=== PATIENT | male | born 1990 | race Caucasian/White ===

== ENCOUNTER 2020-03-05 14:43 | Emergency (ER) | payer BC, MEDICAID ==
[~2020-03-05] VITALS: Ht 175.3 cm; Wt 72.6 kg
[2020-03-05 14:47] VITALS: BP 123/71
--- NOTE | 2020-03-05 14:47 | NUR ---
ED Nurse Note: Pt ESDRAS RA 834 from his apartment for behavioral complaint. Pt states he feels unsafe where he is living in a "sober living home," has received threats from other residents pt verbalized "people are out to kill me." Per EMS report pt has been hearing voices and doesnt think where he live is safe.
--- NOTE | 2020-03-05 14:54 | Emergency Room Report ---
History of Present Illness General Chief Complaint: Behavioral Complaint Source: Patient (Abdi Hurtado MD) Present Illness HPI Patient is a 29-year-old male presents for increased paranoid thoughts. Patient states that people are out to get him at the house that he lives at. He states he stays at a sober living. The report smoking marijuana daily. Denies any other drug use. States has been off of his Seroquel . Denies any difficulty with sleeping. Reports not wanting to talk about the situation due to believing in a "code"Patient denies any current medical complaints. (Abdi Hurtado MD) Allergies: Coded Allergies: No Known Allergies (Unverified , 03/05/20) COVID-19 Screening Contact w/high risk pt: No Experienced COVID-19 symptoms?: No COVID-19 Testing performed ASPHALT MIXER: No (Abdi Hurtado MD) Patient History Past Medical History: see triage record Reviewed Nursing Documentation: PMH: Agreed; PSxH: Agreed (Abdi Hurtado MD) Nursing Documentation-PMH Past Medical History: No History, Except For History Of Psychiatric Problem: Yes (Abdi Hurtado MD) Review of Systems All Other Systems: negative except mentioned in HPI (Abdi Hurtado MD) Physical Exam Vital Signs Date Time Temp Pulse Resp B/P (MAP) Pulse Ox O2 Delivery O2 Flow Rate FiO2 03/05/20 14:40 98.8 101 18 160/78 (105) 98 Room Air Sp02 EP Interpretation: reviewed, normal General Appearance: normal inspection, well appearing, no apparent distress, alert, GCS 15, non-toxic Head: atraumatic ENT: normal ENT inspection, hearing grossly normal, normal voice Neck: normal inspection, full range of motion, supple, no bony tend Respiratory: normal inspection, lungs clear, normal breath sounds, no respiratory distress, no retraction, no wheezing Cardiovascular #1: regular rate, rhythm, no edema Gastrointestinal: normal inspection, normal bowel sounds, non tender, soft, no guarding, no hernia Genitourinary: no CVA tenderness Musculoskeletal: normal inspection, back normal, normal range of motion Neurologic: alert, motor strength/tone normal, air and water filler III-XII nml as tested, oriented x3, responsive, speech normal, normal inspection Psychiatric: normal inspection, judgement/insight normal, mood/affect normal (Abdi Hurtado MD) Medical Decision Making Diagnostic Impression: Primary Impression: Suicidal thoughts ER Course Patient presented for reported thoughts of someone else threatening him. Differential diagnosis include was not limited to paranoid schizophrenia, substance abuse, among others. Patient was seen by [place] [employer]. Patient was placed on a 5150 hold. Patient states that he been off of his psychiatric medication which with Seroquel. Denies any other previous medication use. Per [employer] patient stated that he wanted to kill himself by hanging. He did not report any this to me. Patient was medically cleared for psychiatric placement. He was given Seroquel in the emergency department. Labs Test 03/05/20 15:31 White Blood Count 6.6 K/UL (4.8-10.8) Red Blood Count 4.86 M/UL (4.70-6.10) Hemoglobin 16.4 G/DL (14.2-18.0) Hematocrit 46.4 % (42.0-52.0) Mean Corpuscular Volume 96 FL (80-99) Mean Corpuscular Hemoglobin 33.8 PG (27.0-31.0) Mean Corpuscular Hemoglobin Concent 35.3 G/DL (32.0-36.0) Red Cell Distribution Width 11.1 % (11.6-14.8) Platelet Count 166 K/UL (150-450) Mean Platelet Volume 10.8 FL (6.5-10.1) Neutrophils (%) (Auto) 70.6 % (45.0-75.0) Lymphocytes (%) (Auto) 21.2 % (20.0-45.0) Monocytes (%) (Auto) 7.1 % (1.0-10.0) Eosinophils (%) (Auto) 0.3 % (0.0-3.0) Basophils (%) (Auto) 0.8 % (0.0-2.0) Sodium Level 138 MMOL/L (136-145) Potassium Level 4.0 MMOL/L (3.5-5.1) Chloride Level 100 MMOL/L (98-107) Carbon Dioxide Level 23 MMOL/L (21-32) Anion Gap 15 mmol/L (5-15) Blood Urea Nitrogen 28 mg/dL (7-18) Creatinine 1.2 MG/DL (0.55-1.30) Estimat Glomerular Filtration Rate > 60 mL/min (>60) Glucose Level 69 MG/DL (74-106) Calcium Level 9.2 MG/DL (8.5-10.1) Total Bilirubin 1.0 MG/DL (0.2-1.0) Aspartate Amino Transf (AST/SGOT) 15 U/L (15-37) Alanine Aminotransferase (ALT/SGPT) 15 U/L (12-78) Alkaline Phosphatase 68 U/L (46-116) Total Protein 8.4 G/DL (6.4-8.2) Albumin 5.0 G/DL (3.4-5.0) Globulin 3.4 g/dL Albumin/Globulin Ratio 1.5 (1.0-2.7) Thyroid Stimulating Hormone (TSH) 0.424 uiU/mL (0.358-3.740) Salicylates Level 3.8 ug/mL (2.8-20) Urine Opiates Screen Negative (NEGATIVE) Acetaminophen Level < 2 MCG/ML (10-30) Urine Barbiturates Screen Negative (NEGATIVE) Phencyclidine (PCP) Screen Negative (NEGATIVE) Urine Amphetamines Screen Negative (NEGATIVE) Urine Benzodiazepines Screen Negative (NEGATIVE) Urine Cocaine Screen Negative (NEGATIVE) Urine Marijuana (THC) Screen Positive (NEGATIVE) Serum Alcohol < 3 mg/dL (Abdi Hurtado MD) ER Course Assumed care of the patient from previous provider. Vital signs stable and in no acute distress Briefly, this is a 29-year-old male brought in for paranoid thoughts. He was on a 5150 hold placed by [employer] there is deciding suicidality or homicidality. Patient was medically cleared for psychiatric evaluation. He was evaluated by Dr. Sommer and the 5150 hold was removed. Will be referred to outpatient psychiatry services. Instructed to return if he should think about harming self or others. Stable for outpatient follow-up. (Matt Boone MD) Last Vital Signs Date Time Temp Pulse Resp B/P (MAP) Pulse Ox O2 Delivery O2 Flow Rate FiO2 03/05/20 14:40 98.8 101 18 160/78 (105) 98 Room Air Status: unchanged (Abdi Hurtado MD) Disposition: HOME, SELF-CARE Condition: Stable Abdi Hurtado MD Mar 05, 2020 14:54 Matt Boone MD Mar 06, 2020 13:28
--- NOTE | 2020-03-05 15:14 | NUR ---
ED Nurse Note: [employer] at bedside discussing with patient regarding situation, pt reports feeling unsafe at home and verbalizes "suicical ideation" with a plan to strangle himself. [employer] will place pt on 5150 hold for DTS. Room checked for safety and is free of harmful objects, safety precautions in place. Will continue to monitor, charge nurse Hannah aware, EDMD aware.
[2020-03-05] MEDS ORDERED: QUEtiapine 200mg tab ORAL ONE (15:30)
--- NOTE | 2020-03-05 16:00 | NUR ---
ED Nurse Note: Belongings placed in [address].
--- NOTE | 2020-03-05 16:03 | NUR ---
ED Nurse Note: lab and urine sent to lab
--- NOTE | 2020-03-05 16:04 | NUR ---
ED Nurse Note: food and drink provided.
[2020-03-05 16:21] LABS: BASOPHILS % (AUTO) 0.8 % (0.0-2.0); EOSINOPHILS % (AUTO) 0.3 % (0.0-3.0); HEMATOCRIT 46.4 % (42.0-52.0); HEMOGLOBIN 16.4 G/DL (14.2-18.0); LYMPHOCYTES % (AUTO) 21.2 % (20.0-45.0); MEAN CORPUSCULAR VOLUME 96 FL (80-99); MONOCYTES % (AUTO) 7.1 % (1.0-10.0); NEUTROPHILS % (AUTO) 70.6 % (45.0-75.0); PLATELET COUNT 166 K/UL (150-450); RED BLOOD COUNT 4.86 M/UL (4.70-6.10); RED CELL DISTRIBUTION WIDTH 11.1 % (11.6-14.8); WHITE BLOOD COUNT 6.6 K/UL (4.8-10.8)
[2020-03-05 16:24] LABS: ANION GAP 15 mmol/L (5-15); BLOOD UREA NITROGEN 28 mg/dL (7-18); CALCIUM 9.2 MG/DL (8.5-10.1); CARBON DIOXIDE 23 MMOL/L (21-32); CHLORIDE 100 MMOL/L (98-107); CREATININE 1.2 MG/DL (0.55-1.30); SODIUM 138 MMOL/L (136-145)
[2020-03-05 16:36] LABS: ALANINE AMINOTRANSFERASE 15 U/L (12-78); ALBUMIN/GLOBULIN RATIO 1.5 (1.0-2.7); ALKALINE PHOSPHATASE 68 U/L (46-116); ASPARTATE AMINO TRANSFERASE 15 U/L (15-37)
--- NOTE | 2020-03-05 17:26 | NUR ---
ED Nurse Note: COVID sent to lab
--- NOTE | 2020-03-05 17:50 | NUR ---
ED Nurse Note: Dinner tray given to pt, pt is resting comfortably in bed. Safety precautions in place. Will continue to monitor.
--- NOTE | 2020-03-05 19:27 | NUR ---
HAND-OFF: Report given to HARDEEP Valladares .
[2020-03-05 20:40] VITALS: BP 128/68
--- NOTE | 2020-03-05 20:40 | NUR ---
Nurse Note: Pt calm, asleep, no signs of acute distress. Pt is resting in bed. Behavioral safety measures continued. All safety measures met; will continued to monitor.
--- NOTE | 2020-03-05 21:50 | NUR ---
Covid negative results faxed to Shweta at [facility] as requested to [phone].
--- NOTE | 2020-03-05 22:00 | NUR ---
Nurse Note: Pt resting in bed; cooperative. Pt denied food, restroom. Provided pt with blankets and urinal at bedside. RN at pt side; behavioral precautions continued. All safety measures met; will continue to nick.
[2020-03-05 22:01] LABS: APPEARANCE,URINE CLOUDY; BILIRUBIN, URINE NEGATIVE (NEGATIVE); GLUCOSE, URINE (UA) NEGATIVE (NEGATIVE); KETONES,URINE 4+ (NEGATIVE); LEUKOCYTE ESTERASE ,URINE NEGATIVE (NEGATIVE); NITRITE,URINE NEGATIVE (NEGATIVE); PH,URINE 5 (4.5-8.0); PROTEIN,URINE 2+ (NEGATIVE); UROBILINOGEN,URINE 1 MG/DL (0.0-1.0)
[2020-03-05 22:03] LABS: COLOR,URINE YELLOW
--- NOTE | 2020-03-05 23:37 | NUR ---
Nurse Note: Pt resting in bed; cooperative. Pt aware of setting. RN at pt side; behavioral precautions continued. All safety measures met; will continue to montior.
[2020-03-06 00:05] VITALS: BP 120/72
--- NOTE | 2020-03-06 00:40 | NUR ---
Nurse Note: Pt resting in bed; asleep but easily arousable. No signs of distress noted. RN at pt side; behavioral precautions continued. All safety measures met; will continue to montior.
--- NOTE | 2020-03-06 01:56 | NUR ---
Nurse Note: Pt resting in bed; asleep but easily arousable. No signs of distress noted. Offered blankets, water, urinal; pt remains alseep.RN at pt side; behavioral precautions continued. All safety measures met; will continue to montior.
--- NOTE | 2020-03-06 02:20 | NUR ---
Nurse Note: Pending placement. Pt resting in bed. No signs of acute distress noted. Pt arousable, cooperative. RN at pt side; behavioral precautions continued. All safety measures met; will continue to montior.
--- NOTE | 2020-03-06 03:32 | NUR ---
Nurse Note: Pt resting in bed; asleep. No signs of distress noted. RN at pt side; behavioral precautions continued. All safety measures met; will continue to montior.
--- NOTE | 2020-03-06 05:46 | NUR ---
Nurse Note: Pt resting in bed; asleep. No signs of distress noted. Pt refused food and water. Pt is comfrable. RN at pt side; behavioral precautions continued. All safety measures met; will continue to montior.
[2020-03-06 06:24] VITALS: BP 111/74
--- NOTE | 2020-03-06 06:26 | NUR ---
Nurse Note: Pt resting in bed; asleep, easily arousable. No signs of distress noted. Pt refused food and water. Pt is comfrable. RN at pt side; behavioral precautions continued. All safety measures met; will continue to montior.
--- NOTE | 2020-03-06 07:04 | NUR ---
Nurse Note: Report given HARDEEP Obrien
--- NOTE | 2020-03-06 07:06 | NUR ---
ED Nurse Note: Patient resting in bed with eyes open, calm and cooperative, denies suicidal ideation. Patient offered nourishment and toileting. Sitter at bedside. Safety measures in place.
[2020-03-06 08:20] VITALS: BP 112/75
--- NOTE | 2020-03-06 08:26 | NUR ---
ED Nurse Note: POC BG 92, ERMD notified.
[2020-03-06 10:20] VITALS: BP 114/79
[2020-03-06 11:12] VITALS: BP 112/78
--- NOTE | 2020-03-06 12:50 | NUR ---
ED Nurse Note: DR. GORDON ASSESSED THE PT. AND LIFTED THE HOLD
[2020-03-06 13:20] VITALS: BP 115/80
--- NOTE | 2020-03-06 13:30 | NUR ---
ER DISCHARGE NOTE: Patient is cleared to be discharged per ERMD, pt is aox4, on room air, with stable vital signs. pt was given dc and prescription instructions, pt was able to verbalize understanding, pt id band and iv site removed without complications. pt is able to ambulate with steady gait. pt took all belongings.
--- NOTE | 2020-03-06 20:00 | Consultation ---
DATE OF CONSULTATION: 03/06/2020 CONSULTING PHYSICIAN: Ana Luisa Sommer MD. HISTORY OF PRESENT ILLNESS: This is a 29-year-old male with unknown psychiatric history, who has been admitted to the hospital on a 5150. Patient has been intoxicated with alcohol and marijuana. Patient was placed on a danger to self. Patient stated that he was in a dangerous situation. He believes that he was going to be killed by some "bad people." He played of suicidal ideation to get out of that situation. Patient stated that the police came to place the patient on a 5150. Patient denied any suicidal or homicidal ideation. He is doing well now, does not have any depressive or anxiety symptoms. Patient goes to his primary doctor to get Seroquel prescription. PAST PSYCHIATRIC HISTORY: He denied suicidal attempt. Denies psychiatric hospitalization. Denied being at a psychiatrist. PAST MEDICAL HISTORY: None. ALLERGIES: No known drug allergies. SUBSTANCE ABUSE HISTORY: Patient is dependent to alcohol as well as cannabis. MENTAL STATUS EXAMINATION: Patient is alert, oriented times self, place, situation, and date. Mood is neutral. Affect is full range, congruent with mood. Thought process, linear and goal oriented. Thought content, no suicidal or homicidal ideation. Cognition is intact. Insight and judgment is fair. ASSESSMENT: [place] I Alcohol dependence. Cannabis dependence. Rule out bipolar disorder. Rule out MDD. Substance-induced psychosis. [place] II Deferred. [place] III None. [place] IV Low. [place] V 60. PLAN: Patient's 5150 will be discontinued. Patient will be given referral to psychiatrist's clinic and he was also encouraged to go to his primary to get a referral to a psychiatrist as he has HMO insurance. Ana Luisa Sommer M.D. DR: LINDSEY JOB#: [id number] CC:
== END 2020-03-06 13:30 | disposition home or self-care (01) ==
LOC: EDBD 14:43 → EMR 15:53
DX: R45.851 Suicidal ideations (principal); F10.20 Alcohol dependence, uncomplicated; F12.20 Cannabis dependence, uncomplicated; F19.959 Other psychoactive substance use, unspecified with psychoactive substance-induced psychotic disorder, unspecified
CPT/HCPCS: 36415; 80053; 80307; 81003; 84443; 85025; 87086; G0480; G0481; U0002; Z7502; 99284